=== PATIENT | female | born 1970 | race Caucasian/White ===

== ENCOUNTER 2018-09-14 09:56 | Emergency (ER) | payer MEDICAID ==
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
--- NOTE | 2018-09-14 11:41 | Diagnostic Imaging Report ---
Left shoulder (3 views) HISTORY: Pain Views are suboptimal due to difficulty in patient positioning. The axillary view demonstrates what appears to be degree of subluxation and possible dislocation. A CT scan would provide additional detail and evaluation. IMPRESSION: 1. Questionable subluxation of the humeral head. A CT scan would provide additional detail and evaluation.
[2018-09-14] MEDS ORDERED: HYDROmorphone 1 mg/mL 1mL Syr IVP STA (11:53)
[2018-09-14] MEDS ORDERED: HYDROmorphone 1 mg/mL 1mL Syr ONE (11:56)
--- NOTE | 2018-09-14 13:27 | Diagnostic Imaging Report ---
CT scan left shoulder HISTORY: Pain, question dislocation Total DLP equals 181 CTDI equals 6.3 Axial sections were obtained through the left shoulder. Additional coronal and sagittal reformatted images are provided. The exam demonstrates slight anterior subluxation of the humeral head without sparkle dislocation. Marked irregularity noted along the cortical margin along the posterior humeral head. Somewhat focal defects seen that may be associated with a "Hill-Sachs" deformity. A punctate calcification is noted adjacent to the upper margin of the glenoid process. This may be on a dystrophic basis or perhaps be related to an old punctate fracture fragment. No acute fractures seen. Mild hypertrophic degenerative changes noted about the acromial clavicular joint. IMPRESSION: 1. Slight anterior subluxation of the humeral head without sparkle dislocation. Associated degenerative changes particularly along the posterior margin of the humeral head. Question "Hill-Sachs" deformity that may be related to prior dislocation. 2. Punctate calcification adjacent to the anterior margin of the glenoid process. This may be related to old trauma or dystrophic etiology.
[2018-09-14] MEDS ORDERED: Albuterol/Ipratropium Neb 3 ML AERS HHN ONE ×2 (14:07→14:11)
== END 2018-09-14 15:00 | disposition home or self-care (01) ==
LOC: ER 09:56
DX: S43.002A Unspecified subluxation of left shoulder joint, initial encounter (principal); J44.9 Chronic obstructive pulmonary disease, unspecified; F17.210 Nicotine dependence, cigarettes, uncomplicated; Z88.1 Allergy status to other antibiotic agents; Z88.8 Allergy status to other drugs, medicaments and biological substances; Z59.0 Homelessness; X58.XXXA Exposure to other specified factors, initial encounter; Y93.89 Activity, other specified; Y92.22 Religious institution as the place of occurrence of the external cause; Y99.8 Other external cause status
CPT/HCPCS: 73030-TC-LT; 73200-TC-LT; 94640; 96374; J1170; Z7502